=== PATIENT | female | born 1955 ===

== ENCOUNTER 2023-01-04 09:34 | Outpatient (CLI) | payer OTHER | END 2023-01-04 09:37 | disposition home or self-care (01) | LOC: LAB 09:34 | PROVIDERS: ATTEND Surgery | DX: R19.4 Change in bowel habit (principal); K66.0 Peritoneal adhesions (postprocedural) (postinfection); Z12.11 Encounter for screening for malignant neoplasm of colon; Z03.818 Encounter for observation for suspected exposure to other biological agents ruled out ==

== ENCOUNTER 2023-01-10 06:05 | Day surgery (SDC) | payer OTHER | END 2023-01-10 11:55 | disposition home or self-care (01) | LOC: AMB-ENDOS 06:05 | PROVIDERS: ATTEND Surgery | DX: D12.8 Benign neoplasm of rectum (principal); R19.4 Change in bowel habit; K66.0 Peritoneal adhesions (postprocedural) (postinfection); K64.8 Other hemorrhoids ==